=== PATIENT | male | born 1950 | race Hispanic/Latino ===

== ENCOUNTER → 2019-03-23 | Outpatient (CLI) | payer OTHER | END | disposition home or self-care (01) | LOC: OIH 14:54 | PROVIDERS: ATTEND Internal Medicine | DX: Z13.6 Encounter for screening for cardiovascular disorders (principal) | CPT/HCPCS: 75571 ==

== ENCOUNTER → 2025-07-12 | Outpatient (CLI) | payer OTHER ==
--- NOTE | 2025-07-12 14:18 | HMCIMG ---
CHEST 2VWS REASON: PLEURAL EFFUSION COMPARISON: None FINDINGS: Two views of the chest were obtained. Lungs are clear. Heart size is normal. There is uncoiling atherosclerotic change of thoracic aorta. There is no pulmonary vascular congestion. Mediastinum and bony thorax appear unremarkable. The bony thorax impression osteopenia. IMPRESSION: No evidence of airspace consolidation or pulmonary venous congestion..
== END | disposition home or self-care (01) ==
LOC: RAH 12:09
PROVIDERS: ATTEND Internal Medicine
DX: J90 Pleural effusion, not elsewhere classified (principal); M85.88 Other specified disorders of bone density and structure, other site
CPT/HCPCS: 71046